=== PATIENT | female | born 1985 | race Caucasian/White ===

== ENCOUNTER 2018-10-27 10:20 | Emergency (ER) | payer OTHER ==
[~2018-10-27] VITALS: Ht 149.9 cm; Wt 61.6 kg
[2018-10-27 10:23] VITALS: BP 139/90; PULSE 76; RESP 18; Ht 149.9 cm; Wt 61.6 kg
[2018-10-27] MEDS ORDERED: KETOROLAC 30 MG INJ IM STA (10:53)
[2018-10-27] MEDS ORDERED: BACL10TA PO (11:28)
[2018-10-27] MEDS ORDERED: IBUP-1542 PO (11:28)
--- NOTE | 2018-10-27 11:57 | ERD ---
ER Documentation Chief Complaint Chief Complaint RT SHOULDER PAIN X 4 DAYS , HURTS MORE WITH DEEP BREATH , NO CP HPI Patient is a 33-year-old female with no past medical history presents the ER for concerns of right shoulder pain for the last 4 days. Patient states the pain is worse with deep inspiration. Patient denies any shortness of breath at rest. Patient denies any chest pain. Patient denies any falls or trauma. Patient denies any fevers or chills. Patient is right-hand dominant. Patient denies any numbness or tingling down the affected extremity. ROS All systems reviewed and are negative except as per history of present illness. Medications Home Meds Active Scripts Ibuprofen* (Motrin*) 600 Mg Tab, 600 MG PO Q6, #30 TAB Prov:REYES MON PA-C 10/27/18 Baclofen* (Baclofen*) 10 Mg Tablet, 10 MG PO Q8, #15 TAB Prov:REYES MON PA-C 10/27/18 Allergies Allergies: Coded Allergies: No Known Allergy (Verified Allergy, Unknown, 06/25/08) PMhx/Soc Medical and Surgical Hx: pt denies Medical Hx, pt denies Surgical Hx Hx Alcohol Use: No Hx Substance Use: No Hx Tobacco Use: No Smoking Status: Never smoker FmHx Family History: No diabetes Physical Exam Vitals Vital Signs Date Temp Pulse Resp B/P (MAP) Pulse Ox O2 O2 Flow FiO2 Time Delivery Rate 10/27/18 98.2 76 18 139/90 100 10:23 (106) Physical Exam GENERAL: Well-developed, well-nourished female. Appears in no acute distress. Speaking in full sentences. HEAD: Normocephalic, atraumatic. EYES: Pupils are equally reactive bilaterally. EOMs grossly intact. No conjunctival erythema. ENT: Moist mucous membranes. No uvula deviation. No kissing tonsils. NECK: Supple. No meningismus. Normal range of motion of the neck. No cervical midline tenderness. Tenderness to palpation of the right trapezius muscle. Positive spasms noted. Pain is reproducible. LUNG: Clear to auscultation bilaterally. No rhonchi, wheezing, rales or coarse breath sounds. HEART: Regular rate and rhythm. No murmurs, rubs or gallops. Equal pulses in bilateral upper extremities. BACK: No midline tenderness. EXTREMITIES: Equal pulses bilaterally. No peripheral clubbing, cyanosis or edema. No unilateral leg swelling. Normal range of motion of the right shoulder and elbow. Patient able to lift arm above head. NEUROLOGIC: Alert and oriented. Moving all four extremities without any difficulty. Normal speech. Steady gait. Equal engineering research manager strength. SKIN: Normal color. Warm and dry. No rashes or lesions. Results 24 hrs Laboratory Tests Test 10/27/18 11:05 POC Beta HCG, Qualitative NEGATIVE Current Medications Medications Dose Sig/Kayla Start Time Status Last (Trade) Ordered Route PRN Stop Time Admin Dose Reason Admin Ketorolac 30 mg ONCE STAT 10/27/18 DC 10/27/18 Tromethamine IM 10:53 11:20 (Toradol) 10/27/18 10:54 Procedures/MDM MEDICAL DECISION MAKING: This is a 33-year-old female with no past medical history presents the ER for concerns of right shoulder pain x4 days. Patient denied any falls or trauma. Vital signs were reviewed. Patient was afebrile. Patient was not hypoxic. Lung exam was normal. Patient did have reproducible pain in her right trapezius muscle. Patient likely has muscular skeletal pain as well as muscle spasms. Patient was advised to apply heat to the affected area. Low suspicion for ACS, arrhythmia, pneumothorax, cervical spine dislocation, cervical spine fracture, epidural abscess, cervical disk herniation, osteomyelitis, meningitis, whiplash injury, torticollis or any acute neurological deficit. PRESCRIPTIONS: Ibuprofen Baclofen DISCHARGE: At this time, patient is stable for discharge and outpatient management. RICE therapy and ROM exercises were advised to avoid stiffness. I have instructed the patient to follow-up with his/her primary care physician in 1-2 days. I have discussed with the patient the possibility of needing to see an material specialist for further workup and imaging if the pain persists. I have instructed the patient to promptly return to the ER for any new or worsening symptoms including increased pain, swelling, redness, warmth or fever. The patient and/or family expressed understanding of and agreement with this plan. All questions were answered. Home care instructions were provided. Disclaimer: Inadvertent spelling and grammatical errors are likely due to EHR/dictation software use and do not reflect on the overall quality of patient care. Also, please note that the electronic time recorded on this note does not necessarily reflect the actual time of the patient encounter. Departure Diagnosis: Primary Impression: Trapezius muscle spasm Condition: Fair Patient Instructions: Neck Spasm, No Trauma Additional Instructions: Do not take when driving or operating any machinery. Apply heat to the affected area. Call your primary care doctor TOMORROW for an appointment during the next 1-2 days.See the doctor sooner or return here if your condition worsens before your appointment time. REYES MON PA-C October 27, 2018 11:57
== END 2018-10-27 11:29 | disposition home or self-care (01) ==
LOC: FTE 10:20
DX: M62.830 Muscle spasm of back (principal)
CPT/HCPCS: 81025; 96372; J1885; Z7502